=== PATIENT | male | born 1930 | race Caucasian/White ===

== ENCOUNTER 2018-04-02 06:48 | Day surgery (SDC) | payer MEDICARE ==
[2018-03-31 14:57] VITALS: BP 154/70
[2018-03-31 15:08] LABS: APPEARANCE,URINE Clear (CLEAR); BILIRUBIN,URINE Negative (NEGATIVE); COLOR,URINE Yellow (YELLOW); GLUCOSE, URINE (UA) Negative (NEGATIVE); KETONES,URINE Negative (NEGATIVE); LEUKOCYTE ESTERASE ,URINE Negative (NEGATIVE); NITRATE,URINE Negative (NEGATIVE); OCCULT BLOOD,URINE Negative (NEGATIVE); PH,URINE 6.5 (5.0-8.0); PROTEIN,URINE POS 2+ (NEGATIVE); UROBILINOGEN,URINE 0.2 mg/dL (0.2-1.0)
[2018-03-31 15:09] LABS: BASOPHILS % (AUTO) 1.2 % (0.0-5.0); EOSINOPHILS % (AUTO) 1.8 % (0.0-8.0); HEMATOCRIT 41.3 % (42-54); LYMPHOCYTES % (AUTO) 18.4 % (21.0-51.0); MEAN CORPUSCULAR HEMOGLOBIN 34.3 pg (27.0-33.0); MEAN CORPUSCULAR HGB CONC 32.8 g/dL (32.0-36.0); MEAN CORPUSCULAR VOLUME 104.8 fL (79-99); MONOCYTES % (AUTO) 7.3 % (3.0-13.0); NEUTROPHILS % (AUTO) 71.3 % (40.0-77.0); NUCLEATED RED BLOOD CELLS 0.2 % (0.0-0.19); PLATELET COUNT (AUTO) 108 K/uL (130-400); RED BLOOD CELL COUNT(AUTO) 3.95 MIL/uL (4.50-6.20); RED CELL DISTRIBUTION WIDTH 15.3 % (11.0-15.5); WHITE BLOOD COUNT (AUTO) 5.5 K/uL (4.8-10.8)
[2018-03-31 15:20] LABS: CREATININE 1.2 mg/dL (0.5-1.5); POTASSIUM 4.7 mmol/L (3.5-5.1)
[2018-03-31 15:21] LABS: INR 1.01 (0.85-1.15); PARTIAL THROMBOPLASTIN TIME 27.1 SEC (26.3-35.5); PROTHROMBIN TIME 10.6 SEC (9.6-11.6)
[2018-03-31 15:46] LABS: RBC,URINE 0-1 /HPF (0-1); WBC,URINE 0-1 /HPF (0-1)
[2018-03-31 15:47] LABS: BACTERIA,URINE Rare /HPF (None Seen); SQUAMOUS EPITHELIAL CELL,UR Rare /HPF (0-2)
[2018-04-02] VITALS (21 sets, daily range): BP systolic 146–167; BP diastolic 60–84
[~2018-04-02] VITALS: Ht 177.8 cm; Wt 106.4 kg
[~2018-04-02 06:48] MED LIST: AEC81 PO; ALLO300T2 PO; AMLO5TAB7 PO; ATOR10TA69 PO; CLOP75TA14 PO; FISH1CAP63 PO; INSU100I26 SQ; LISI1TAB11 PO; METF-444 PO; METOPROLOL ER PO; MULTIVITAMIN PO; SITA50TA PO; SODIUM CHLORIDE 0.9% 500ML 500 ML IV SCH; VITAMIN B12 PO; [UNRECOGNIZED DRUG - OTHER] PO
[2018-04-02] MEDS ORDERED: LIDOCAINE HCL-MPF 2% 5ML VIAL ONE (07:57)
[2018-04-02] MEDS ORDERED: NITROGLYCERIN 5 MG/ML 10 ML VIAL IV ONE (07:57)
[2018-04-02] MEDS ORDERED: IODIXANOL 320 MG/ML 100 ML VIAL ONE (07:57)
[2018-04-02] MEDS ORDERED: HEPARIN SODIUM 1000UNIT/ML 10ML VIAL ONE (07:57)
[2018-04-02] MEDS ORDERED: SODIUM CHLORIDE 0.9% 1000ML 1,000 ML IV ONE (08:46)
[2018-04-02] MEDS ORDERED: MIDAZOLAM HCL 1 MG/ML 2ML VIAL ONE (09:08)
[2018-04-02] MEDS ORDERED: FENTANYL CITRATE PF 50 MCG/1 ML 2ML VIAL ONE (09:09)
[2018-04-02] MEDS ORDERED: SODIUM CHLORIDE 0.9% 1000ML 1,000 ML IV SCH (10:02)
[2018-04-02] MEDS ORDERED: PROTAMINE SULFATE 10 MG/ML 25ML VIAL IV ONE (10:07)
[2018-04-02] MEDS ORDERED: NITROGLYCERIN 0.4 MG SL TAB SL PRN (10:15)
[2018-04-02] MEDS ORDERED: GLUCAGON 1MG KIT 1 MG ML IM PRN (10:15)
[2018-04-02] MEDS ORDERED: ONDANSETRON HCL 4 MG/2 ML VIAL IVP SCH (10:15)
[2018-04-02] MEDS ORDERED: METOPROLOL TARTRATE 1 MG/ML 5ML VIAL IV PRN (10:15)
[2018-04-02] MEDS ORDERED: DEXTROSE 50%-WATER 50 ML DISP.SYRIN IV PRN (10:15)
[2018-04-02] MEDS ORDERED: MORPHINE SULFATE 5 MG/ML VIAL IVP SCH (10:15)
[2018-04-02] MEDS ORDERED: INSULIN HUMULIN R 100 UNIT/ML 3ML SQ SCH (11:30)
[2018-04-02] MEDS ORDERED: ONDANSETRON HCL MDV 20ML 2 MG/ML VIAL ONE (11:34)
[2018-04-02] MEDS ORDERED: MORPHINE SULFATE 4 MG/1ML SYG ONE (11:35)
[2018-04-02] MEDS ORDERED: ATROPINE SULFATE 0.1 MG/ML 10 ML SYG IVP ONE (11:49)
== END 2018-04-02 15:10 | disposition home or self-care (01) ==
LOC: DAH 06:48
PROVIDERS: ATTEND Internal Medicine Cardiovascular Disease
DX: I70.213 Atherosclerosis of native arteries of extremities with intermittent claudication, bilateral legs (principal); I70.0 Atherosclerosis of aorta; Z68.32 Body mass index [BMI] 32.0-32.9, adult; Z79.899 Other long term (current) drug therapy; Z98.890 Other specified postprocedural states; E11.9 Type 2 diabetes mellitus without complications; E78.00 Pure hypercholesterolemia, unspecified; I25.10 Atherosclerotic heart disease of native coronary artery without angina pectoris; Z88.2 Allergy status to sulfonamides; Z79.84 Long term (current) use of oral hypoglycemic drugs; I10 Essential (primary) hypertension; Z86.73 Personal history of transient ischemic attack (TIA), and cerebral infarction without residual deficits; Z90.49 Acquired absence of other specified parts of digestive tract; I63.9 Cerebral infarction, unspecified; I48.91 Unspecified atrial fibrillation
CPT/HCPCS: 36246; 36415 ×2; 71045; 75625; 75716; 80048; 81001; 82948 ×2; 85025; 85347; 85610; 85730; 93005; C1769; C1893; C1894 ×2; J0461; J1644 ×3; J2250; J2270; J3010; J3490 ×2; J7030; Q9967; 36247; 99156; 99157; J2720

== ENCOUNTER 2018-04-12 14:05 | Inpatient (IN) | payer MEDICARE ==
[~2018-04-12] VITALS: Ht 177.8 cm; Wt 113.0 kg
[~2018-04-12 14:05] MED LIST changes: +CALCIUM CHLORIDE 100 MG/ML 10 ML SYG IVP ONE; +HEPARIN SODIUM 10000 UNIT/ML 1ML VIAL IJ ONE; +HEPARIN SODIUM 1000UNIT/ML 10ML VIAL IV ONE; +PHENYLEPHRINE HCL 10 MG/ML 1ML VIAL IV ONE; -SODIUM CHLORIDE 0.9% 500ML 500 ML IV SCH
[2018-04-12 15:54] VITALS: BP 146/70
[2018-04-12] MEDS ORDERED: HEPARIN 25000 UNITS/250 ML D5W 250 ML IV PRN (17:15)
[2018-04-12 17:41] LABS: CREATININE 1.3 mg/dL (0.5-1.5); POTASSIUM 4.9 mmol/L (3.5-5.1)
[2018-04-12] MEDS ORDERED: IOHEXOL 350 MG/ML 100ML INFUS..BTL IV ONE (18:06)
[2018-04-12] MEDS ORDERED: OMEG1CAP31 PO (18:07)
[2018-04-12 18:14] LABS: TROPONIN I 0.9 ng/mL (0.00-0.06)
[2018-04-12 19:00] VITALS: BP 136/75
[2018-04-12 23:00] VITALS: BP 143/76
[2018-04-13 03:00] VITALS: BP 153/90
[2018-04-13 04:44] LABS: TROPONIN I 0.59 ng/mL (0.00-0.06)
[2018-04-13 07:00] VITALS: BP 145/79
[2018-04-13 11:00] VITALS: BP 151/91
[2018-04-13 16:00] VITALS: BP 148/85
[2018-04-13] MEDS ORDERED: METFORMIN HCL 500 MG TABLET PO SCH (17:00)
[2018-04-13] MEDS ORDERED: MAG HYDROX/AL HYDROX/SIMETH ES 30 ML SUSP UDCUP PO PRN (17:15)
[2018-04-13] MEDS: BUMETANIDE 0.25 MG/ML 10 ML 40 ML IV SCH (18:35)
[2018-04-13] MEDS ORDERED: DICYCLOMINE HCL 10 MG/ML 2ML AMP IM PRN (19:45)
[2018-04-13 20:00] VITALS: BP 146/94
[2018-04-13] MEDS: ALLOPURINOL 300 MG TABLET PO SCH (20:52)
[2018-04-13] MEDS: CYANOCOBALAMIN (VITAMIN B-12) 1,000 MCG TABLET PO SCH (20:52)
[2018-04-13] MEDS: ASPIRIN 81 MG EC TAB PO SCH (20:52)
[2018-04-13] MEDS: AMLODIPINE BESYLATE 5 MG TAB PO SCH (20:52)
[2018-04-13] MEDS: FISH OIL 1000 MG/CAP PO SCH (20:52)
[2018-04-13] MEDS: METOPROLOL TARTRATE 50 MG TAB PO SCH (20:52)
[2018-04-13] MEDS: ATORVASTATIN CALCIUM 10 MG TABLET PO SCH (20:52)
[2018-04-13] MEDS: MULTIVITAMIN TABLET PO SCH (20:53)
[2018-04-13] MEDS: CLOPIDOGREL BISULFATE 75 MG TAB PO SCH (20:53)
[2018-04-13] MEDS ORDERED: DICYCLOMINE HCL 10 MG/ML 2ML AMP IM ONE (20:54)
[2018-04-13] MEDS ORDERED: DICYCLOMINE HCL 20 MG TAB PO PRN (22:45)
[2018-04-13 23:00] VITALS: BP 143/83
[2018-04-14] VITALS (7 sets, daily range): BP systolic 109–140; BP diastolic 58–84
[2018-04-14] MEDS: BUMETANIDE 0.25 MG/ML 10 ML 40 ML IV SCH (01:03)
[2018-04-14 04:12] LABS: HEMATOCRIT 38.7 % (42-54); MEAN CORPUSCULAR HEMOGLOBIN 35.4 pg (27.0-33.0); MEAN CORPUSCULAR HGB CONC 33.8 g/dL (32.0-36.0); MEAN CORPUSCULAR VOLUME 104.8 fL (79-99); PLATELET COUNT (AUTO) 126 K/uL (130-400); RED CELL DISTRIBUTION WIDTH 14.7 % (11.0-15.5)
[2018-04-14 04:31] LABS: HEMOGLOBIN A1C 6.5 % (4.0-6.0)
[2018-04-14 04:42] LABS: CREATININE 1.5 mg/dL (0.5-1.5); POTASSIUM 4.2 mmol/L (3.5-5.1)
[2018-04-14 04:51] LABS: TROPONIN I 25.58 ng/mL (0.00-0.06)
[2018-04-14 05:44] LABS: B-TYPE NATRIURETIC PEPTIDE 3270 pg/mL (0-100)
[2018-04-14] MEDS: INSULIN GLARGINE 100 UNITS/ML 10 ML VIAL SQ SCH (06:26)
[2018-04-14] MEDS: MULTIVITAMIN TABLET PO SCH ×2 (08:30→22:36)
[2018-04-14] MEDS: FISH OIL 1000 MG/CAP PO SCH ×2 (08:30→21:58)
[2018-04-14] MEDS: METOPROLOL TARTRATE 50 MG TAB PO SCH (08:30)
[2018-04-14] MEDS: LISINOPRIL 20 MG TABLET PO SCH (08:31)
[2018-04-14] MEDS: HYDROCHLOROTHIAZIDE 25 MG TABLET PO SCH (08:31)
[2018-04-14] MEDS: CYANOCOBALAMIN (VITAMIN B-12) 1,000 MCG TABLET PO SCH ×2 (08:31→21:58)
[2018-04-14] MEDS ORDERED: OMEGA ACID ETHYL ESTERS PO SCH (09:00)
[2018-04-14] MEDS: LINAGLIPTIN 5 MG TABLET PO SCH (09:00)
[2018-04-14] MEDS ORDERED: FUROSEMIDE 10 MG/ML 4ML VIAL IV SCH (16:15)
[2018-04-14] MEDS: CLOPIDOGREL BISULFATE 75 MG TAB PO SCH (21:58)
[2018-04-14] MEDS: AMLODIPINE BESYLATE 5 MG TAB PO SCH (21:58)
[2018-04-14] MEDS: ATORVASTATIN CALCIUM 10 MG TABLET PO SCH (21:58)
[2018-04-14] MEDS: ALLOPURINOL 300 MG TABLET PO SCH (21:58)
[2018-04-14] MEDS: ASPIRIN 81 MG EC TAB PO SCH (21:59)
[2018-04-14] MEDS: INSULIN HUMULIN R 100 UNIT/ML 3ML SQ SCH (22:37)
[2018-04-15 03:42] LABS: HEMATOCRIT 35.7 % (42-54); MEAN CORPUSCULAR HEMOGLOBIN 36.1 pg (27.0-33.0); MEAN CORPUSCULAR HGB CONC 34.3 g/dL (32.0-36.0); MEAN CORPUSCULAR VOLUME 105.1 fL (79-99); PLATELET COUNT (AUTO) 158 K/uL (130-400); RED BLOOD CELL COUNT(AUTO) 3.39 MIL/uL (4.50-6.20); RED CELL DISTRIBUTION WIDTH 15.1 % (11.0-15.5); WHITE BLOOD COUNT (AUTO) 10.1 K/uL (4.8-10.8)
[2018-04-15 03:53] LABS: B-TYPE NATRIURETIC PEPTIDE 1690 pg/mL (0-100)
[2018-04-15 04:06] LABS: CREATININE 1.8 mg/dL (0.5-1.5); POTASSIUM 4.6 mmol/L (3.5-5.1)
[2018-04-15 04:14] LABS: TROPONIN I 11.82 ng/mL (0.00-0.06)
[2018-04-15 04:35] VITALS: BP 114/69
[2018-04-15] MEDS: INSULIN HUMULIN R 100 UNIT/ML 3ML SQ SCH ×4 (06:36→22:12)
[2018-04-15] MEDS: INSULIN GLARGINE 100 UNITS/ML 10 ML VIAL SQ SCH (06:47)
[2018-04-15 08:02] VITALS: BP 141/52
[2018-04-15] MEDS: FISH OIL 1000 MG/CAP PO SCH ×2 (10:04→22:11)
[2018-04-15] MEDS: LINAGLIPTIN 5 MG TABLET PO SCH (10:04)
[2018-04-15] MEDS: CYANOCOBALAMIN (VITAMIN B-12) 1,000 MCG TABLET PO SCH ×2 (10:05→22:11)
[2018-04-15] MEDS: MULTIVITAMIN TABLET PO SCH ×2 (10:05→22:11)
[2018-04-15] MEDS: HYDROCHLOROTHIAZIDE 25 MG TABLET PO SCH (10:05)
[2018-04-15] MEDS: LISINOPRIL 20 MG TABLET PO SCH (10:05)
[2018-04-15] MEDS: IPRATROPIUM/ALBUTEROL SULFATE 3 ML SOLUTION IH SCH ×2 (11:32→23:49)
[2018-04-15 12:04] VITALS: BP 106/61
[2018-04-15 16:00] VITALS: BP 115/66
[2018-04-15 19:53] VITALS: BP 137/69
[2018-04-15] MEDS: AMLODIPINE BESYLATE 5 MG TAB PO SCH (22:11)
[2018-04-15] MEDS: ALLOPURINOL 300 MG TABLET PO SCH (22:11)
[2018-04-15] MEDS: ASPIRIN 81 MG EC TAB PO SCH (22:11)
[2018-04-15] MEDS: ATORVASTATIN CALCIUM 10 MG TABLET PO SCH (22:11)
[2018-04-15] MEDS: CLOPIDOGREL BISULFATE 75 MG TAB PO SCH (22:11)
[2018-04-16] VITALS (13 sets, daily range): BP systolic 110–146; BP diastolic 57–98
[2018-04-16 04:24] LABS: BASOPHILS % (AUTO) 0.8 % (0.0-5.0); HEMATOCRIT 34.6 % (42-54); LYMPHOCYTES % (AUTO) 9.3 % (21.0-51.0); MEAN CORPUSCULAR HEMOGLOBIN 35.5 pg (27.0-33.0); MEAN CORPUSCULAR HGB CONC 34.1 g/dL (32.0-36.0); MEAN CORPUSCULAR VOLUME 104.3 fL (79-99); MONOCYTES % (AUTO) 5.5 % (3.0-13.0); NEUTROPHILS % (AUTO) 83.4 % (40.0-77.0); PLATELET COUNT (AUTO) 138 K/uL (130-400); RED BLOOD CELL COUNT(AUTO) 3.32 MIL/uL (4.50-6.20); RED CELL DISTRIBUTION WIDTH 14.8 % (11.0-15.5); WHITE BLOOD COUNT (AUTO) 8.5 K/uL (4.8-10.8)
[2018-04-16 04:44] LABS: ALBUMIN 2.6 g/dL (3.5-5.0); BILIRUBIN,TOTAL 0.4 mg/dL (0.2-1.0); CREATININE 1.7 mg/dL (0.5-1.5); POTASSIUM 4.4 mmol/L (3.5-5.1); TOTAL PROTEIN, SERUM 6.6 g/dL (6.0-8.3)
[2018-04-16] MEDS: IPRATROPIUM/ALBUTEROL SULFATE 3 ML SOLUTION IH SCH ×4 (05:53→23:55)
[2018-04-16] MEDS: INSULIN HUMULIN R 100 UNIT/ML 3ML SQ SCH ×4 (06:59→21:00)
[2018-04-16] MEDS: INSULIN GLARGINE 100 UNITS/ML 10 ML VIAL SQ SCH (07:30)
[2018-04-16] MEDS ORDERED: SODIUM CHLORIDE 0.9% 1000ML 1,000 ML IV SCH ×2 (08:00→19:15)
[2018-04-16] MEDS: FISH OIL 1000 MG/CAP PO SCH ×2 (09:34→21:00)
[2018-04-16] MEDS: LINAGLIPTIN 5 MG TABLET PO SCH (09:35)
[2018-04-16] MEDS: CYANOCOBALAMIN (VITAMIN B-12) 1,000 MCG TABLET PO SCH ×2 (09:35→22:48)
[2018-04-16] MEDS: MULTIVITAMIN TABLET PO SCH ×2 (09:35→22:52)
[2018-04-16] MEDS: HYDROCHLOROTHIAZIDE 25 MG TABLET PO SCH (09:35)
[2018-04-16] MEDS: LISINOPRIL 20 MG TABLET PO SCH (09:36)
[2018-04-16 10:44] LABS: INR 1.02 (0.85-1.15); PARTIAL THROMBOPLASTIN TIME 26.5 SEC (26.3-35.5); PROTHROMBIN TIME 10.5 SEC (9.6-11.6)
[2018-04-16] MEDS ORDERED: LORAZEPAM 2 MG/ML 1 ML VIAL IVP PRN (13:00)
[2018-04-16] MEDS: INSULIN LISPRO 100 UNIT/ML 3ML SQ SCH (16:09)
[2018-04-16] MEDS ORDERED: IOHEXOL-350 50ML VIAL IV ONE (18:22)
[2018-04-16] MEDS ORDERED: NITROGLYCERIN 5 MG/ML 10 ML VIAL IV ONE (18:22)
[2018-04-16] MEDS ORDERED: HEPARIN SODIUM 1000UNIT/ML 10ML VIAL ONE (18:22)
[2018-04-16] MEDS ORDERED: LIDOCAINE HCL-MPF 2% 5ML VIAL ONE (18:22)
[2018-04-16] MEDS ORDERED: IOHEXOL 350 MG/ML 100ML INFUS..BTL IV ONE (18:22)
[2018-04-16] MEDS ORDERED: SODIUM BICARB 50MEQ 50ML VIAL ONE (18:22)
[2018-04-16] MEDS: ASPIRIN 81 MG EC TAB PO SCH (21:00)
[2018-04-16] MEDS: CLOPIDOGREL BISULFATE 75 MG TAB PO SCH (21:00)
[2018-04-16 21:33] LABS: CHOLESTEROL 56 mg/dL (<200); HDL CHOLESTEROL 22 mg/dL (29-71); LDL DIRECT 30 mg/dL (0-99); TRIGLYCERIDES 64 mg/dL (30-200)
[2018-04-16] MEDS: ATORVASTATIN CALCIUM 10 MG TABLET PO SCH (22:48)
[2018-04-16] MEDS: ALLOPURINOL 300 MG TABLET PO SCH (22:48)
[2018-04-16] MEDS: AMLODIPINE BESYLATE 5 MG TAB PO SCH (22:49)
[2018-04-17] VITALS (16 sets, daily range): BP systolic 90–144; BP diastolic 42–75
[2018-04-17 04:01] LABS: HEMATOCRIT 35.4 % (42-54); MEAN CORPUSCULAR HEMOGLOBIN 35.8 pg (27.0-33.0); MEAN CORPUSCULAR HGB CONC 34.3 g/dL (32.0-36.0); MEAN CORPUSCULAR VOLUME 104.5 fL (79-99); PLATELET COUNT (AUTO) 159 K/uL (130-400); RED BLOOD CELL COUNT(AUTO) 3.39 MIL/uL (4.50-6.20); RED CELL DISTRIBUTION WIDTH 14.8 % (11.0-15.5); WHITE BLOOD COUNT (AUTO) 7.4 K/uL (4.8-10.8)
[2018-04-17 04:43] LABS: POTASSIUM 3.7 mmol/L (3.5-5.1)
[2018-04-17 04:44] LABS: CREATININE 1.3 mg/dL (0.5-1.5)
[2018-04-17] MEDS: IPRATROPIUM/ALBUTEROL SULFATE 3 ML SOLUTION IH SCH ×4 (06:17→23:22)
[2018-04-17] MEDS: INSULIN GLARGINE 100 UNITS/ML 10 ML VIAL SQ SCH (06:28)
[2018-04-17] MEDS: INSULIN LISPRO 100 UNIT/ML 3ML SQ SCH ×2 (06:28→11:30)
[2018-04-17] MEDS: INSULIN HUMULIN R 100 UNIT/ML 3ML SQ SCH ×4 (06:35→20:37)
[2018-04-17] MEDS ORDERED: SODIUM CHLORIDE 0.9% 1000ML 1,000 ML IV ONE (10:14)
[2018-04-17] MEDS ORDERED: NITROGLYCERIN 50 MG/D5% WATER 1 BOT ONE (10:22)
[2018-04-17] MEDS ORDERED: PROPOFOL 10 MG/ML 20ML VIAL IV ONE (10:24)
[2018-04-17] MEDS ORDERED: EPINEPHRINE 1 MG/ML AMPULE ONE (10:24)
[2018-04-17] MEDS ORDERED: LIDOCAINE PF 2% 5ML ABBOJECT ONE (10:24)
[2018-04-17] MEDS ORDERED: SODIUM BICARB 50MEQ 50ML VIAL ONE ×2 (10:24→14:22)
[2018-04-17] MEDS ORDERED: HEPARIN SODIUM 1000UNIT/ML 10ML VIAL ONE (10:24)
[2018-04-17] MEDS ORDERED: PROTAMINE SULFATE 10 MG/ML 25ML VIAL IV ONE (10:24)
[2018-04-17] MEDS ORDERED: NOREPINEPHRINE BITARTRATE 1 MG/1 ML ML IV ONE (10:24)
[2018-04-17] MEDS ORDERED: AMINOCAPROIC ACID 250 MG/ML 20 ML VIAL IV ONE (10:24)
[2018-04-17] MEDS ORDERED: ESMOLOL HCL 10 MG/ML 10 ML VIAL ONE (10:24)
[2018-04-17] MEDS ORDERED: FENTANYL CITRATE PF 50 MCG/1 ML 20ML VIAL IJ ONE (10:25)
[2018-04-17] MEDS ORDERED: MIDAZOLAM HCL 1 MG/ML 5ML VIAL ONE (10:25)
[2018-04-17] MEDS ORDERED: CEFUROXIME SODIUM 1.5 GM VIAL IVP PRN (11:00)
[2018-04-17] MEDS ORDERED: THROMBIN-JMI 5000 UNIT/VIAL TP ONE (11:15)
[2018-04-17] MEDS ORDERED: ROCURONIUM 10MG/1ML SYR 10 MG/ML ML ONE (11:27)
[2018-04-17] MEDS ORDERED: PAPAVERINE HCL 30 MG/ML 2ML VIAL ONE (11:50)
[2018-04-17] MEDS ORDERED: OCTYL 2-CYANOACRYLATE 1 EACH TP ONE ×2 (11:50→15:00)
[2018-04-17] MEDS ORDERED: BACITRACIN 50,000 UNIT VIAL ONE (11:51)
[2018-04-17 12:07] LABS: ABG BASE EXCESS 1.4 mmol/L (-2.0-3.0); ABG OXYGEN SATURATION 98.9 % (95.0-99.0); ABG PCO2 36 mmHg (35-48)
[2018-04-17] MEDS ORDERED: EPHEDRINE SULFATE 50 MG/ML AMPULE ONE ×2 (13:00→14:33)
[2018-04-17] MEDS ORDERED: SODIUM CHLORIDE 0.9% 500ML 500 ML IV SCH (13:01)
[2018-04-17 13:11] LABS: ABG HCO3 22.3 mmol/L (21.0-28.0); ABG OXYGEN SATURATION 96.9 % (95.0-99.0); ABG PCO2 41 mmHg (35-48)
[2018-04-17] MEDS ORDERED: ALBUMIN (HUMAN) 5% 250 ML IV PRN (13:15)
[2018-04-17] MEDS ORDERED: SODIUM CHLORIDE 0.9% 1000ML 1,000 ML IV SCH (13:15)
[2018-04-17] MEDS ORDERED: INSULIN REGULAR, HUMAN 3ML 100 UNIT in SODIUM CHLORIDE 0.9% 99 ML IV SCH ×2 (13:15)
[2018-04-17] MEDS ORDERED: SODIUM CHLORIDE 0.9% 250 ML IV PRN (13:15)
[2018-04-17] MEDS ORDERED: GLUCAGON 1MG KIT 1 MG ML IM PRN (13:15)
[2018-04-17] MEDS ORDERED: EPINEPHRINE 8 MG in SODIUM CHLORIDE 0.9% 250 ML IV PRN (13:15)
[2018-04-17] MEDS ORDERED: NITROGLYCERIN 50 MG/D5% WATER 250 BOT IV SCH (13:15)
[2018-04-17] MEDS ORDERED: NOREPINEPHRINE 4MG/NS 250ML 250 ML IV PRN (13:15)
[2018-04-17] MEDS ORDERED: MORPHINE SULFATE 2 MG/ML 1ML SYG IV PRN (13:15)
[2018-04-17] MEDS ORDERED: SODIUM CHLORIDE 0.9% 10 ML VIAL IVP PRN (13:15)
[2018-04-17] MEDS ORDERED: ACETAMINOPHEN 325 MG TAB PO PRN (13:15)
[2018-04-17] MEDS ORDERED: AMINOCAPROIC ACID 15,000 MG in SODIUM CHLORIDE 0.9% 250 ML IV SCH (13:15)
[2018-04-17] MEDS ORDERED: POTASSIUM PHOS 15 mMOL+NS250ML 250 ML IV PRN (13:15)
[2018-04-17] MEDS ORDERED: MORPHINE SULFATE 4 MG/1ML SYG IV PRN (13:15)
[2018-04-17] MEDS ORDERED: DEXTROSE 50%-WATER 50 ML DISP.SYRIN IV PRN (13:15)
[2018-04-17] MEDS ORDERED: ONDANSETRON HCL 4 MG/2 ML VIAL IV PRN (13:15)
[2018-04-17] MEDS ORDERED: PROPOFOL 1000 MG/100 ML 100 ML IV PRN (13:15)
[2018-04-17] MEDS ORDERED: ACETAMINOPHEN 650 MG SUPPOSITORY RC PRN (13:15)
[2018-04-17] MEDS ORDERED: CALCIUM GLUCONATE 1 GM in SODIUM CHLORIDE 0.9% 50 ML IV PRN (13:15)
[2018-04-17] MEDS ORDERED: SODIUM BICARB 50MEQ 50ML VIAL IV PRN (13:15)
[2018-04-17 14:34] LABS: ABG HCO3 33.3 mmol/L (21.0-28.0); ABG OXYGEN SATURATION 98.7 % (95.0-99.0); ABG PCO2 51 mmHg (35-48)
[2018-04-17] MEDS ORDERED: POTASSIUM CHLORIDE 20MEQ/100ML 200 ML IV ONE (14:48)
[2018-04-17 15:48] LABS: ABG BASE EXCESS -2.6 mmol/L (-2.0-3.0); ABG HCO3 23.5 mmol/L (21.0-28.0); ABG OXYGEN SATURATION 91.3 % (95.0-99.0); ABG PCO2 46 mmHg (35-48)
[2018-04-17 15:56] LABS: HEMATOCRIT 33.3 % (42-54); MEAN CORPUSCULAR HEMOGLOBIN 35.4 pg (27.0-33.0); MEAN CORPUSCULAR HGB CONC 33.4 g/dL (32.0-36.0); MEAN CORPUSCULAR VOLUME 106.1 fL (79-99); PLATELET COUNT (AUTO) 217 K/uL (130-400); RED BLOOD CELL COUNT(AUTO) 3.14 MIL/uL (4.50-6.20); RED CELL DISTRIBUTION WIDTH 14.9 % (11.0-15.5); WHITE BLOOD COUNT (AUTO) 22.2 K/uL (4.8-10.8)
[2018-04-17 16:09] LABS: CREATININE 1.5 mg/dL (0.5-1.5); MAGNESIUM 1.7 mg/dL (1.80-2.40); PHOSPHORUS 4.4 mg/dL (2.5-4.9)
[2018-04-17] MEDS: POTASSIUM CHLORIDE 20MEQ/100ML 100 ML IV PRN ×4 (16:09→21:55)
[2018-04-17 16:13] LABS: POTASSIUM 2.9 mmol/L (3.5-5.1)
[2018-04-17] MEDS: MAGNESIUM 2GM PREMIX 50ML 50 ML IV PRN (17:21)
[2018-04-17 17:36] LABS: ABG BASE EXCESS -3.5 mmol/L (-2.0-3.0); ABG HCO3 21.9 mmol/L (21.0-28.0); ABG OXYGEN SATURATION 94.3 % (95.0-99.0); ABG PCO2 41 mmHg (35-48)
[2018-04-17 19:08] LABS: ABG BASE EXCESS -2.5 mmol/L (-2.0-3.0); ABG HCO3 22.1 mmol/L (21.0-28.0); ABG PCO2 37 mmHg (35-48)
[2018-04-17] MEDS ORDERED: PHARMACY COMMUNICATION MISC SCH (19:15)
[2018-04-17] MEDS ORDERED: NOREPINEPHRINE BITARTRATE 8 MG in SODIUM CHLORIDE 0.9% 250 ML IV PRN (19:22)
[2018-04-17] MEDS: ASPIRIN 81 MG EC TAB PO SCH (20:31)
[2018-04-17] MEDS: ATORVASTATIN CALCIUM 10 MG TABLET PO SCH (20:32)
[2018-04-17 21:41] LABS: MAGNESIUM 2.1 mg/dL (1.80-2.40); POTASSIUM 3.9 mmol/L (3.5-5.1)
[2018-04-17] MEDS: CEFUROXIME SODIUM 1.5 GM VIAL IVP SCH (21:55)
[2018-04-17 22:10] LABS: ABG BASE EXCESS -0.1 mmol/L (-2.0-3.0); ABG HCO3 22.7 mmol/L (21.0-28.0); ABG OXYGEN SATURATION 92.2 % (95.0-99.0); ABG PCO2 31 mmHg (35-48)
[2018-04-17] MEDS ORDERED: FUROSEMIDE 10 MG/ML 4ML VIAL IV ONE (22:56)
[2018-04-18] VITALS (24 sets, daily range): BP systolic 83–189; BP diastolic 41–93
[2018-04-18] MEDS: ACETAMINOPHEN 325 MG TAB PO PRN
[2018-04-18 01:03] LABS: ABG BASE EXCESS 2.9 mmol/L (-2.0-3.0); ABG HCO3 24.7 mmol/L (21.0-28.0); ABG OXYGEN SATURATION 95.8 % (95.0-99.0); ABG PCO2 30 mmHg (35-48)
[2018-04-18 02:11] LABS: ABG BASE EXCESS 4.6 mmol/L (-2.0-3.0); ABG HCO3 26.6 mmol/L (21.0-28.0); ABG OXYGEN SATURATION 96.7 % (95.0-99.0); ABG PCO2 32 mmHg (35-48)
[2018-04-18] MEDS: INSULIN HUMULIN R 100 UNIT/ML 3ML SQ SCH ×4 (02:23→21:00)
[2018-04-18 03:21] LABS: HEMATOCRIT 32.2 % (42-54); MEAN CORPUSCULAR HEMOGLOBIN 35.3 pg (27.0-33.0); MEAN CORPUSCULAR HGB CONC 33.5 g/dL (32.0-36.0); MEAN CORPUSCULAR VOLUME 105.4 fL (79-99); NUCLEATED RED BLOOD CELLS 0.1 % (0.0-0.19); PLATELET COUNT (AUTO) 221 K/uL (130-400); RED BLOOD CELL COUNT(AUTO) 3.06 MIL/uL (4.50-6.20); RED CELL DISTRIBUTION WIDTH 15.1 % (11.0-15.5); WHITE BLOOD COUNT (AUTO) 14.4 K/uL (4.8-10.8)
[2018-04-18 03:32] LABS: CREATININE 1.6 mg/dL (0.5-1.5); POTASSIUM 4.2 mmol/L (3.5-5.1)
[2018-04-18 03:36] LABS: MAGNESIUM 1.9 mg/dL (1.80-2.40); PHOSPHORUS 1.8 mg/dL (2.5-4.9)
[2018-04-18 03:43] LABS: INR 1.12 (0.85-1.15); PARTIAL THROMBOPLASTIN TIME 25.1 SEC (26.3-35.5); PROTHROMBIN TIME 11.7 SEC (9.6-11.6)
[2018-04-18] MEDS: MAGNESIUM 2GM PREMIX 50ML 50 ML IV PRN (04:39)
[2018-04-18 06:24] LABS: ABG BASE EXCESS 1.4 mmol/L (-2.0-3.0); ABG HCO3 24.6 mmol/L (21.0-28.0); ABG OXYGEN SATURATION 98.6 % (95.0-99.0); ABG PCO2 35 mmHg (35-48)
[2018-04-18] MEDS: IPRATROPIUM/ALBUTEROL SULFATE 3 ML SOLUTION IH SCH ×3 (06:28→18:00)
[2018-04-18] MEDS ORDERED: AMIODARONE HCL 150 MG in DEXTROSE 5%-WATER 100 ML IV SCH (08:30)
[2018-04-18] MEDS: CEFUROXIME SODIUM 1.5 GM VIAL IVP SCH ×2 (08:45→21:47)
[2018-04-18] MEDS: FAMOTIDINE/PF 20 MG/2 ML VIAL IV SCH (08:45)
[2018-04-18] MEDS ORDERED: AMIODARONE HCL 900 MG in DEXTROSE 5%-WATER 500 ML IV SCH (08:57)
[2018-04-18] MEDS: CLOPIDOGREL BISULFATE 75 MG TAB PO SCH (09:10)
[2018-04-18] MEDS: FUROSEMIDE 10 MG/ML 2ML VIAL IV SCH ×2 (09:11→21:46)
[2018-04-18] MEDS: TRAMADOL HCL 50 MG TABLET PO PRN (09:13)
[2018-04-18 10:51] LABS: ABG HCO3 26.3 mmol/L (21.0-28.0); ABG OXYGEN SATURATION 95.8 % (95.0-99.0); ABG PCO2 36 mmHg (35-48)
[2018-04-18] MEDS ORDERED: ALBUMIN (HUMAN) 5% 250 ML IV ONE (16:52)
[2018-04-18 17:03] LABS: ABG BASE EXCESS 4.2 mmol/L (-2.0-3.0); ABG HCO3 28.1 mmol/L (21.0-28.0); ABG OXYGEN SATURATION 96.2 % (95.0-99.0); ABG PCO2 39 mmHg (35-48)
[2018-04-18] MEDS ORDERED: ALBUMIN (HUMAN) 5% 250 ML IV SCH (17:15)
[2018-04-18] MEDS: ACETYLCYSTEINE 10% 100MG/ML 4ML VIAL IH SCH ×2 (18:12→23:39)
[2018-04-18] MEDS: IPRATROPIUM 0.5 MG/2.5 ML INH IH SCH ×2 (18:12→23:39)
[2018-04-18] MEDS: ALLOPURINOL 300 MG TABLET PO SCH (21:00)
[2018-04-18] MEDS: ASPIRIN 81 MG EC TAB PO SCH (21:00)
[2018-04-18] MEDS: ATORVASTATIN CALCIUM 10 MG TABLET PO SCH (21:00)
[2018-04-18] MEDS ORDERED: DiphenhydrAMINE HCL 50 MG/ML VIAL ONE (21:33)
[2018-04-18] MEDS: BUDESONIDE 0.5 MG/2 ML INH IH SCH (23:39)
[2018-04-19] VITALS (22 sets, daily range): BP systolic 95–142; BP diastolic 42–82
[2018-04-19 04:48] LABS: BASOPHILS % (AUTO) 0.4 % (0.0-5.0); EOSINOPHILS % (AUTO) 0.3 % (0.0-8.0); HEMATOCRIT 28.4 % (42-54); LYMPHOCYTES % (AUTO) 7.3 % (21.0-51.0); MEAN CORPUSCULAR HGB CONC 32.8 g/dL (32.0-36.0); MEAN CORPUSCULAR VOLUME 106.5 fL (79-99); MONOCYTES % (AUTO) 4.2 % (3.0-13.0); NEUTROPHILS % (AUTO) 87.8 % (40.0-77.0); PLATELET COUNT (AUTO) 139 K/uL (130-400); RED BLOOD CELL COUNT(AUTO) 2.67 MIL/uL (4.50-6.20); RED CELL DISTRIBUTION WIDTH 15.6 % (11.0-15.5); WHITE BLOOD COUNT (AUTO) 11.4 K/uL (4.8-10.8)
[2018-04-19 05:05] LABS: CREATININE 2.1 mg/dL (0.5-1.5); MAGNESIUM 2.3 mg/dL (1.80-2.40); PHOSPHORUS 4.8 mg/dL (2.5-4.9); POTASSIUM 5.3 mmol/L (3.5-5.1)
[2018-04-19] MEDS: IPRATROPIUM/ALBUTEROL SULFATE 3 ML SOLUTION IH SCH ×4 (06:00→18:00)
[2018-04-19] MEDS: ACETYLCYSTEINE 10% 100MG/ML 4ML VIAL IH SCH ×4 (06:47→23:53)
[2018-04-19] MEDS: IPRATROPIUM 0.5 MG/2.5 ML INH IH SCH ×4 (06:47→23:53)
[2018-04-19] MEDS: BUDESONIDE 0.5 MG/2 ML INH IH SCH ×2 (06:48→18:04)
[2018-04-19 07:27] LABS: ABG BASE EXCESS 1.7 mmol/L (-2.0-3.0); ABG HCO3 25.2 mmol/L (21.0-28.0); ABG OXYGEN SATURATION 94.7 % (95.0-99.0); ABG PCO2 36 mmHg (35-48)
[2018-04-19] MEDS: INSULIN HUMULIN R 100 UNIT/ML 3ML SQ SCH ×4 (07:30→23:22)
[2018-04-19] MEDS: CLOPIDOGREL BISULFATE 75 MG TAB PO SCH (08:30)
[2018-04-19] MEDS: FAMOTIDINE/PF 20 MG/2 ML VIAL IV SCH (08:30)
[2018-04-19] MEDS: ASPIRIN 81 MG EC TAB PO SCH (08:31)
[2018-04-19] MEDS: ATORVASTATIN CALCIUM 10 MG TABLET PO SCH (08:31)
[2018-04-19] MEDS ORDERED: FUROSEMIDE 20 MG TABLET PO SCH (09:00)
[2018-04-19] MEDS ORDERED: AMIODARONE HCL 200 MG TABLET PO SCH (10:15)
[2018-04-19] MEDS: TRAMADOL HCL 50 MG TABLET PO PRN (15:27)
[2018-04-19] MEDS: DEXTROSE 5 %-0.45 % NACL 1,000 ML IV SCH (16:27)
[2018-04-19] MEDS: AMIODARONE HCL 200 MG TABLET PO SCH (20:40)
[2018-04-19] MEDS: METOPROLOL TARTRATE 25 MG TAB PO SCH (20:40)
[2018-04-19] MEDS: ZOSYN 3.375GM+NS 50ML 50 ML IV SCH (20:40)
[2018-04-19] MEDS: ALLOPURINOL 300 MG TABLET PO SCH (20:40)
[2018-04-19] MEDS: ENOXAPARIN SODIUM 30 MG/0.3 ML SQ SCH (20:41)
[2018-04-20] VITALS (17 sets, daily range): BP systolic 91–138; BP diastolic 39–69
[2018-04-20 03:33] LABS: HEMATOCRIT 28.5 % (42-54); MEAN CORPUSCULAR HEMOGLOBIN 36.4 pg (27.0-33.0); MEAN CORPUSCULAR HGB CONC 33.9 g/dL (32.0-36.0); MEAN CORPUSCULAR VOLUME 107.4 fL (79-99); NUCLEATED RED BLOOD CELLS 0.1 % (0.0-0.19); PLATELET COUNT (AUTO) 125 K/uL (130-400); RED BLOOD CELL COUNT(AUTO) 2.66 MIL/uL (4.50-6.20); RED CELL DISTRIBUTION WIDTH 15.5 % (11.0-15.5); WHITE BLOOD COUNT (AUTO) 9.5 K/uL (4.8-10.8)
[2018-04-20 03:43] LABS: CREATININE 2.5 mg/dL (0.5-1.5); POTASSIUM 5.5 mmol/L (3.5-5.1)
[2018-04-20] MEDS: IPRATROPIUM/ALBUTEROL SULFATE 3 ML SOLUTION IH SCH ×4 (06:00→18:00)
[2018-04-20] MEDS: INSULIN HUMULIN R 100 UNIT/ML 3ML SQ SCH ×2 (06:18→23:56)
[2018-04-20] MEDS: IPRATROPIUM 0.5 MG/2.5 ML INH IH SCH ×3 (07:14→17:59)
[2018-04-20] MEDS: BUDESONIDE 0.5 MG/2 ML INH IH SCH ×2 (07:14→17:59)
[2018-04-20] MEDS: ACETYLCYSTEINE 10% 100MG/ML 4ML VIAL IH SCH ×3 (07:14→17:59)
[2018-04-20] MEDS: DEXTROSE 5 %-0.45 % NACL 1,000 ML IV SCH ×2 (08:36→23:44)
[2018-04-20] MEDS: FAMOTIDINE/PF 20 MG/2 ML VIAL IV SCH (08:37)
[2018-04-20] MEDS: CLOPIDOGREL BISULFATE 75 MG TAB PO SCH (08:37)
[2018-04-20] MEDS: METOPROLOL TARTRATE 25 MG TAB PO SCH ×2 (08:37→20:54)
[2018-04-20] MEDS: AMIODARONE HCL 200 MG TABLET PO SCH ×2 (08:38→20:52)
[2018-04-20] MEDS: ENOXAPARIN SODIUM 30 MG/0.3 ML SQ SCH (08:38)
[2018-04-20] MEDS: ZOSYN 3.375GM+NS 50ML 50 ML IV SCH ×2 (08:38→21:03)
[2018-04-20] MEDS: TRAMADOL HCL 50 MG TABLET PO PRN ×2 (08:40→20:53)
[2018-04-20] MEDS ORDERED: SODIUM CHLORIDE 0.9% 100 ML IV ONE (08:47)
[2018-04-20 19:18] LABS: APPEARANCE,URINE Clear (CLEAR); BILIRUBIN,URINE Negative (NEGATIVE); COLOR,URINE Yellow (YELLOW); GLUCOSE, URINE (UA) Negative (NEGATIVE); KETONES,URINE Negative (NEGATIVE); LEUKOCYTE ESTERASE ,URINE Trace (NEGATIVE); NITRATE,URINE Negative (NEGATIVE); OCCULT BLOOD,URINE Moderate (NEGATIVE); PH,URINE 5.5 (5.0-8.0); PROTEIN,URINE POS 1+ (NEGATIVE)
[2018-04-20 19:20] LABS: SODIUM,URINE RANDOM 39 mmol/l (40-220)
[2018-04-20 20:24] LABS: BACTERIA,URINE Rare /HPF (None Seen); SQUAMOUS EPITHELIAL CELL,UR 0-2 /HPF (0-2)
[2018-04-20] MEDS: ALBUMIN (HUMAN) 25% 50 ML IV SCH (20:45)
[2018-04-20] MEDS: ATORVASTATIN CALCIUM 10 MG TABLET PO SCH (20:52)
[2018-04-20] MEDS: ALLOPURINOL 300 MG TABLET PO SCH (20:52)
[2018-04-20] MEDS: ASPIRIN 81 MG EC TAB PO SCH (20:52)
[2018-04-20] MEDS ORDERED: BUMETANIDE 0.25 MG/ML 4 ML VIAL IVP SCH (21:00)
[2018-04-21] VITALS (24 sets, daily range): BP systolic 96–130; BP diastolic 46–70
[2018-04-21] MEDS: ACETYLCYSTEINE 10% 100MG/ML 4ML VIAL IH SCH ×5 (00:01→23:46)
[2018-04-21] MEDS: IPRATROPIUM 0.5 MG/2.5 ML INH IH SCH ×5 (00:01→23:46)
[2018-04-21 04:20] LABS: HEMATOCRIT 26.9 % (42-54); MEAN CORPUSCULAR HEMOGLOBIN 35.4 pg (27.0-33.0); NUCLEATED RED BLOOD CELLS 0.6 % (0.0-0.19); PLATELET COUNT (AUTO) 126 K/uL (130-400); RED BLOOD CELL COUNT(AUTO) 2.51 MIL/uL (4.50-6.20); WHITE BLOOD COUNT (AUTO) 7.6 K/uL (4.8-10.8)
[2018-04-21 04:21] LABS: % IRON SATURATION 15.6 % (30-44)
[2018-04-21 04:23] LABS: B-TYPE NATRIURETIC PEPTIDE 1710 pg/mL (0-100)
[2018-04-21 04:27] LABS: BILIRUBIN,TOTAL 0.5 mg/dL (0.2-1.0); CREATININE 2.3 mg/dL (0.5-1.5); MAGNESIUM 2.4 mg/dL (1.80-2.40); PHOSPHORUS 4.7 mg/dL (2.5-4.9); POTASSIUM 4.7 mmol/L (3.5-5.1); TOTAL PROTEIN, SERUM 5.7 g/dL (6.0-8.3); URIC ACID 7.6 mg/dL (2.6-7.2)
[2018-04-21] MEDS: IPRATROPIUM/ALBUTEROL SULFATE 3 ML SOLUTION IH SCH ×3 (06:00→23:50)
[2018-04-21] MEDS: INSULIN HUMULIN R 100 UNIT/ML 3ML SQ SCH ×3 (06:01→20:30)
[2018-04-21] MEDS: BUDESONIDE 0.5 MG/2 ML INH IH SCH ×2 (07:35→18:23)
[2018-04-21] MEDS: ALBUMIN (HUMAN) 25% 50 ML IV SCH (08:14)
[2018-04-21] MEDS ORDERED: BUMETANIDE 0.25 MG/ML 4 ML VIAL IVP SCH ×2 (09:00)
[2018-04-21] MEDS: BUMETANIDE 0.25 MG/ML 4 ML VIAL IVP SCH ×2 (09:15→17:43)
[2018-04-21] MEDS: FAMOTIDINE/PF 20 MG/2 ML VIAL IV SCH (09:39)
[2018-04-21] MEDS: ZOSYN 3.375GM+NS 50ML 50 ML IV SCH ×2 (09:39→20:28)
[2018-04-21] MEDS: ENOXAPARIN SODIUM 30 MG/0.3 ML SQ SCH (11:25)
[2018-04-21] MEDS: AMIODARONE HCL 200 MG TABLET PO SCH ×2 (11:25→20:29)
[2018-04-21] MEDS: METOPROLOL TARTRATE 25 MG TAB PO SCH ×2 (11:25→20:29)
[2018-04-21] MEDS: CLOPIDOGREL BISULFATE 75 MG TAB PO SCH (11:26)
[2018-04-21] MEDS ORDERED: ALBUMIN (HUMAN) 25% 50 ML IV SCH (15:30)
[2018-04-21] MEDS: DEXTROSE 5 %-0.45 % NACL 1,000 ML IV SCH (18:15)
[2018-04-21] MEDS: ATORVASTATIN CALCIUM 10 MG TABLET PO SCH (20:29)
[2018-04-21] MEDS: ASPIRIN 81 MG EC TAB PO SCH (20:29)
[2018-04-21] MEDS: POLYETHYLENE GLYCOL 3350 17 GM POWD.PACK PO SCH (20:29)
[2018-04-21] MEDS: ALLOPURINOL 300 MG TABLET PO SCH (20:29)
[2018-04-22] VITALS (24 sets, daily range): BP systolic 93–149; BP diastolic 42–77
[2018-04-22 03:41] LABS: CREATININE 2.1 mg/dL (0.5-1.5); POTASSIUM 4.5 mmol/L (3.5-5.1)
[2018-04-22] MEDS: INSULIN HUMULIN R 100 UNIT/ML 3ML SQ SCH ×4 (06:16→22:25)
[2018-04-22] MEDS: IPRATROPIUM 0.5 MG/2.5 ML INH IH SCH ×3 (07:10→18:34)
[2018-04-22] MEDS: BUDESONIDE 0.5 MG/2 ML INH IH SCH ×2 (07:10→18:35)
[2018-04-22] MEDS: ACETYLCYSTEINE 10% 100MG/ML 4ML VIAL IH SCH ×3 (07:10→18:34)
[2018-04-22] MEDS ORDERED: COMPOUND IV MISC 1 EACH IVSOLN MISC PRN (07:15)
[2018-04-22] MEDS: DEXTROSE 5%-WATER 1,000 ML IV SCH ×2 (07:42→20:15)
[2018-04-22] MEDS ORDERED: SODIUM CHLORIDE 0.9% 100 ML IV ONE (12:31)
[2018-04-22] MEDS: FAMOTIDINE/PF 20 MG/2 ML VIAL IV SCH (12:32)
[2018-04-22] MEDS: CLOPIDOGREL BISULFATE 75 MG TAB PO SCH (12:32)
[2018-04-22] MEDS: ZOSYN 3.375GM+NS 50ML 50 ML IV SCH ×2 (12:32→21:00)
[2018-04-22] MEDS: METOPROLOL TARTRATE 25 MG TAB PO SCH ×2 (12:33→20:59)
[2018-04-22] MEDS: BUMETANIDE 0.25 MG/ML 4 ML VIAL IVP SCH ×2 (12:33→21:00)
[2018-04-22] MEDS: AMIODARONE HCL 200 MG TABLET PO SCH ×2 (12:33→21:00)
[2018-04-22] MEDS: IRON SUCROSE COMPLEX 100 MG in SODIUM CHLORIDE 0.9% 50 ML IV SCH (12:34)
[2018-04-22] MEDS: ENOXAPARIN SODIUM 30 MG/0.3 ML SQ SCH (12:34)
[2018-04-22] MEDS: ACETAMINOPHEN 325 MG TAB PO PRN (17:54)
[2018-04-22] MEDS ORDERED: ALLOPURINOL 300 MG TABLET ONE (20:52)
[2018-04-22] MEDS: ZOLPIDEM TARTRATE 5 MG TAB PO PRN (20:59)
[2018-04-22] MEDS: POLYETHYLENE GLYCOL 3350 17 GM POWD.PACK PO SCH (21:00)
[2018-04-22] MEDS: ALLOPURINOL 300 MG TABLET PO SCH (21:00)
[2018-04-22] MEDS: ASPIRIN 81 MG EC TAB PO SCH (21:01)
[2018-04-22] MEDS: ATORVASTATIN CALCIUM 10 MG TABLET PO SCH (21:01)
[2018-04-23] VITALS (9 sets, daily range): BP systolic 103–140; BP diastolic 54–71
[2018-04-23] MEDS: ACETYLCYSTEINE 10% 100MG/ML 4ML VIAL IH SCH ×2 (00:12→06:12)
[2018-04-23] MEDS: IPRATROPIUM 0.5 MG/2.5 ML INH IH SCH ×2 (00:13→06:12)
[2018-04-23 03:44] LABS: HEMATOCRIT 28.9 % (42-54); MEAN CORPUSCULAR HEMOGLOBIN 35.1 pg (27.0-33.0); MEAN CORPUSCULAR HGB CONC 32.9 g/dL (32.0-36.0); MEAN CORPUSCULAR VOLUME 106.8 fL (79-99); NUCLEATED RED BLOOD CELLS 1.2 % (0.0-0.19); PLATELET COUNT (AUTO) 133 K/uL (130-400); RED BLOOD CELL COUNT(AUTO) 2.71 MIL/uL (4.50-6.20); RED CELL DISTRIBUTION WIDTH 14.6 % (11.0-15.5)
[2018-04-23 03:57] LABS: ALBUMIN 2.1 g/dL (3.5-5.0); CREATININE 1.9 mg/dL (0.5-1.5); MAGNESIUM 2.1 mg/dL (1.80-2.40); PHOSPHORUS 3.8 mg/dL (2.5-4.9); POTASSIUM 4.1 mmol/L (3.5-5.1)
[2018-04-23 04:00] LABS: B-TYPE NATRIURETIC PEPTIDE 2270 pg/mL (0-100)
[2018-04-23] MEDS: INSULIN HUMULIN R 100 UNIT/ML 3ML SQ SCH ×4 (06:11→22:05)
[2018-04-23] MEDS: BUDESONIDE 0.5 MG/2 ML INH IH SCH ×2 (06:12→20:44)
[2018-04-23] MEDS ORDERED: SODIUM CHLORIDE 0.9% 100 ML IV ONE (08:45)
[2018-04-23] MEDS: TAMSULOSIN HCL 0.4 MG CAP.ER.24H PO SCH (09:00)
[2018-04-23] MEDS: IRON SUCROSE COMPLEX 100 MG in SODIUM CHLORIDE 0.9% 50 ML IV SCH (09:00)
[2018-04-23] MEDS: CLOPIDOGREL BISULFATE 75 MG TAB PO SCH (09:00)
[2018-04-23] MEDS: AMIODARONE HCL 200 MG TABLET PO SCH (09:00)
[2018-04-23] MEDS: ENOXAPARIN SODIUM 30 MG/0.3 ML SQ SCH (09:00)
[2018-04-23] MEDS: ZOSYN 3.375GM+NS 50ML 50 ML IV SCH ×2 (09:00→20:17)
[2018-04-23] MEDS: FAMOTIDINE/PF 20 MG/2 ML VIAL IV SCH (09:00)
[2018-04-23] MEDS: BUMETANIDE 0.25 MG/ML 4 ML VIAL IVP SCH ×2 (09:00→20:17)
[2018-04-23] MEDS: SODIUM CHLORIDE 3% FOR INHALATION 4 ML/AMP VIAL.NEB IH ONE ×2 (11:56→13:20)
[2018-04-23] MEDS ORDERED: SODIUM CHLORIDE FOR INHALATION 3 ML VIAL.NEB. IH SCH (12:00)
[2018-04-23] MEDS: [UNRECOGNIZED DRUG - OTHER] IH SCH ×2 (19:31→23:26)
[2018-04-23] MEDS: SODIUM CHLORIDE 3% IH SCH ×2 (19:31→23:26)
[2018-04-23] MEDS: ZOLPIDEM TARTRATE 5 MG TAB PO PRN (20:17)
[2018-04-23] MEDS: ASPIRIN 81 MG EC TAB PO SCH (20:17)
[2018-04-23] MEDS: ATORVASTATIN CALCIUM 10 MG TABLET PO SCH (20:17)
[2018-04-23] MEDS: POLYETHYLENE GLYCOL 3350 17 GM POWD.PACK PO SCH (20:17)
[2018-04-23] MEDS: ALLOPURINOL 300 MG TABLET PO SCH (21:00)
[2018-04-23] MEDS: DEXTROSE 5%-WATER 1,000 ML IV SCH (22:55)
[2018-04-24] VITALS (7 sets, daily range): BP systolic 115–141; BP diastolic 57–76
[2018-04-24] MEDS: SODIUM CHLORIDE 3% IH SCH ×3 (05:54→18:32)
[2018-04-24] MEDS: [UNRECOGNIZED DRUG - OTHER] IH SCH ×3 (05:54→18:32)
[2018-04-24] MEDS: BUDESONIDE 0.5 MG/2 ML INH IH SCH ×2 (06:01→18:47)
[2018-04-24] MEDS: INSULIN HUMULIN R 100 UNIT/ML 3ML SQ SCH ×4 (06:53→21:00)
[2018-04-24] MEDS: ACETAMINOPHEN 325 MG TAB PO PRN (08:18)
[2018-04-24] MEDS: FAMOTIDINE/PF 20 MG/2 ML VIAL IV SCH (09:37)
[2018-04-24] MEDS: TAMSULOSIN HCL 0.4 MG CAP.ER.24H PO SCH (09:37)
[2018-04-24] MEDS: CLOPIDOGREL BISULFATE 75 MG TAB PO SCH (09:38)
[2018-04-24] MEDS: BUMETANIDE 1 MG TAB PO SCH ×2 (09:38→20:19)
[2018-04-24] MEDS: AMIODARONE HCL 200 MG TABLET PO SCH (09:38)
[2018-04-24] MEDS: ZOSYN 3.375GM+NS 50ML 50 ML IV SCH (09:38)
[2018-04-24] MEDS: ENOXAPARIN SODIUM 30 MG/0.3 ML SQ SCH (09:38)
[2018-04-24] MEDS: DEXTROSE 5%-WATER 1,000 ML IV SCH ×2 (09:56→12:15)
[2018-04-24] MEDS: IRON SUCROSE COMPLEX 100 MG in SODIUM CHLORIDE 0.9% 50 ML IV SCH (09:57)
[2018-04-24 11:10] LABS: CREATININE 1.5 mg/dL (0.5-1.5); POTASSIUM 3.9 mmol/L (3.5-5.1)
[2018-04-24] MEDS: POLYETHYLENE GLYCOL 3350 17 GM POWD.PACK PO SCH (20:19)
[2018-04-24] MEDS: ATORVASTATIN CALCIUM 10 MG TABLET PO SCH (20:19)
[2018-04-24] MEDS: ASPIRIN 81 MG EC TAB PO SCH (20:19)
[2018-04-24] MEDS: ALLOPURINOL 300 MG TABLET PO SCH (21:00)
[2018-04-25] MEDS: SODIUM CHLORIDE 3% IH SCH ×4 (00:01→18:18)
[2018-04-25] MEDS: [UNRECOGNIZED DRUG - OTHER] IH SCH ×4 (00:01→18:18)
[2018-04-25 03:33] LABS: HEMATOCRIT 30.3 % (42-54); MEAN CORPUSCULAR HEMOGLOBIN 35.4 pg (27.0-33.0); MEAN CORPUSCULAR HGB CONC 33.2 g/dL (32.0-36.0); MEAN CORPUSCULAR VOLUME 106.6 fL (79-99); NUCLEATED RED BLOOD CELLS 0.2 % (0.0-0.19); PLATELET COUNT (AUTO) 130 K/uL (130-400); RED BLOOD CELL COUNT(AUTO) 2.84 MIL/uL (4.50-6.20); RED CELL DISTRIBUTION WIDTH 14.9 % (11.0-15.5); WHITE BLOOD COUNT (AUTO) 9.2 K/uL (4.8-10.8)
[2018-04-25 03:44] LABS: CREATININE 1.4 mg/dL (0.5-1.5); POTASSIUM 3.7 mmol/L (3.5-5.1)
[2018-04-25 03:50] VITALS: BP 137/59
[2018-04-25] MEDS: BUDESONIDE 0.5 MG/2 ML INH IH SCH ×2 (06:42→18:18)
[2018-04-25] MEDS: INSULIN HUMULIN R 100 UNIT/ML 3ML SQ SCH ×3 (07:08→16:46)
[2018-04-25 07:31] VITALS: BP 165/66
[2018-04-25] MEDS: BUMETANIDE 1 MG TAB PO SCH (09:04)
[2018-04-25] MEDS: FAMOTIDINE/PF 20 MG/2 ML VIAL IV SCH (09:04)
[2018-04-25] MEDS: TAMSULOSIN HCL 0.4 MG CAP.ER.24H PO SCH (09:05)
[2018-04-25] MEDS: ENOXAPARIN SODIUM 30 MG/0.3 ML SQ SCH (09:09)
[2018-04-25 11:06] VITALS: BP 143/57
[2018-04-25] MEDS: ACETAMINOPHEN 325 MG TAB PO PRN (15:27)
[2018-04-25 16:23] VITALS: BP 133/79
[2018-04-25] MEDS ORDERED: RIVAROXABAN 15 MG TABLET PO SCH (21:00)
[2018-04-26] MEDS ORDERED: LOSARTAN 50 MG TABLET PO SCH (09:00)
== END 2018-04-25 18:45 | DRG 233 ==
LOC: OBSVTOIN 14:05 → 2DH 14:05 → 2CV 04-17 10:57 → 2BH 04-18 14:28 → 2CH 04-19 11:46 → 2DH 04-23 17:10
PROVIDERS: ADMIT Internal Medicine; ATTEND Internal Medicine
PROC: 4A023N7 Measurement of Cardiac Sampling and Pressure, Left Heart, Percutaneous Approach (ICD-10-PCS; principal; 2018-04-16)
PROC: B2111ZZ Fluoroscopy of Multiple Coronary Arteries using Low Osmolar Contrast (ICD-10-PCS; 2018-04-16)
PROC: 021109W Bypass Coronary Artery, Two Arteries from Aorta with Autologous Venous Tissue, Open Approach (ICD-10-PCS; 2018-04-17)
PROC: 06BQ4ZZ Excision of Left Saphenous Vein, Percutaneous Endoscopic Approach (ICD-10-PCS; 2018-04-17)
PROC: 30233R1 Transfusion of Nonautologous Platelets into Peripheral Vein, Percutaneous Approach (ICD-10-PCS; 2018-04-17)
PROC: 5A09357 Assistance with Respiratory Ventilation, Less than 24 Consecutive Hours, Continuous Positive Airway Pressure (ICD-10-PCS; 2018-04-17)
PROC: 5A09357 Assistance with Respiratory Ventilation, Less than 24 Consecutive Hours, Continuous Positive Airway Pressure (ICD-10-PCS; 2018-04-17)
PROC: 02100Z9 Bypass Coronary Artery, One Artery from Left Internal Mammary, Open Approach (ICD-10-PCS; 2018-04-17 11:00)
PROC: 0DH67UZ Insertion of Feeding Device into Stomach, Via Natural or Artificial Opening (ICD-10-PCS; 2018-04-19)
PROC: 5A09357 Assistance with Respiratory Ventilation, Less than 24 Consecutive Hours, Continuous Positive Airway Pressure (ICD-10-PCS; 2018-04-21)
PROC: 5A09357 Assistance with Respiratory Ventilation, Less than 24 Consecutive Hours, Continuous Positive Airway Pressure (ICD-10-PCS; 2018-04-22)
PROC: 5A09357 Assistance with Respiratory Ventilation, Less than 24 Consecutive Hours, Continuous Positive Airway Pressure (ICD-10-PCS; 2018-04-24)
DX: I21.4 Non-ST elevation (NSTEMI) myocardial infarction (principal); G92 Toxic encephalopathy; J96.01 Acute respiratory failure with hypoxia; I50.21 Acute systolic (congestive) heart failure; N17.9 Acute kidney failure, unspecified; I13.0 Hypertensive heart and chronic kidney disease with heart failure and stage 1 through stage 4 chronic kidney disease, or unspecified chronic kidney disease; E46 Unspecified protein-calorie malnutrition; Z99.11 Dependence on respirator [ventilator] status; E87.0 Hyperosmolality and hypernatremia; I48.92 Unspecified atrial flutter; E11.51 Type 2 diabetes mellitus with diabetic peripheral angiopathy without gangrene; N18.9 Chronic kidney disease, unspecified; E11.22 Type 2 diabetes mellitus with diabetic chronic kidney disease; I44.1 Atrioventricular block, second degree; H57.02 Anisocoria; R13.11 Dysphagia, oral phase; I25.110 Atherosclerotic heart disease of native coronary artery with unstable angina pectoris; I25.5 Ischemic cardiomyopathy; M10.9 Gout, unspecified; D50.0 Iron deficiency anemia secondary to blood loss (chronic); D69.6 Thrombocytopenia, unspecified; D72.829 Elevated white blood cell count, unspecified; E11.65 Type 2 diabetes mellitus with hyperglycemia; E78.2 Mixed hyperlipidemia; F41.9 Anxiety disorder, unspecified; E87.5 Hyperkalemia; I25.2 Old myocardial infarction; I48.0 Paroxysmal atrial fibrillation; I49.5 Sick sinus syndrome; I51.3 Intracardiac thrombosis, not elsewhere classified; I65.21 Occlusion and stenosis of right carotid artery; J44.9 Chronic obstructive pulmonary disease, unspecified; J98.01 Acute bronchospasm; N18.2 Chronic kidney disease, stage 2 (mild); N40.1 Benign prostatic hyperplasia with lower urinary tract symptoms; R13.12 Dysphagia, oropharyngeal phase; R13.13 Dysphagia, pharyngeal phase; R33.8 Other retention of urine; S30.1XXA Contusion of abdominal wall, initial encounter; Z68.35 Body mass index [BMI] 35.0-35.9, adult; Y92.89 Other specified places as the place of occurrence of the external cause; Y93.89 Activity, other specified; Y99.8 Other external cause status; Z79.02 Long term (current) use of antithrombotics/antiplatelets; Z79.4 Long term (current) use of insulin; Z79.82 Long term (current) use of aspirin; Z79.899 Other long term (current) drug therapy; Z86.73 Personal history of transient ischemic attack (TIA), and cerebral infarction without residual deficits; Z86.74 Personal history of sudden cardiac arrest; Z87.891 Personal history of nicotine dependence; Z95.5 Presence of coronary angioplasty implant and graft; Z95.820 Peripheral vascular angioplasty status with implants and grafts; Z88.1 Allergy status to other antibiotic agents; Z88.8 Allergy status to other drugs, medicaments and biological substances; Z83.3 Family history of diabetes mellitus; Z82.49 Family history of ischemic heart disease and other diseases of the circulatory system
CPT/HCPCS: 36415; 70450; 71045; 71046; 71275; 74018; 74230; 76770; 80048; 80053; 80061; 80339; 81001; 82040; 82435; 82550; 82803; 82947; 82948; 83036; 83540; 83550; 83605; 83735; 83874; 83880; 83935; 84100; 84132; 84295; 84300; 84484; 84550; 85018; 85025; 85027; 85347; 85378; 85610; 85730; 86850; 86900; 86901; 86922; 92526; 92610; 92611; 93005; 93306; 93458; 93880; 93926; 94002; 94003; 94010; 94150; 94640; 94660; 94664; 94667; 94668; 94760; 97039; A4218; A4357; A7048; B4081; C1760; C1894; J0171; J0282; J0500; J0610; J0697; J1200; J1644; J1650; J1756; J1815; J1940; J2001; J2060; J2250; J2370; J2440; J2543; J2704; J2720; J3010; J3475; J3480; J3490; J7030; J7040; J7042; J7060; J7070; J7120; J7608; P9034; P9045; P9047; Q9967

== ENCOUNTER 2018-10-22 06:44 | Observation (INO) | payer MEDICARE ==
[2018-10-20 14:40] VITALS: BP 147/71
[2018-10-20 14:45] LABS: BASOPHILS % (AUTO) 1.3 % (0.0-5.0); EOSINOPHILS % (AUTO) 2.1 % (0.0-8.0); HEMATOCRIT 36.4 % (42-54); LYMPHOCYTES % (AUTO) 19.1 % (21.0-51.0); MEAN CORPUSCULAR HEMOGLOBIN 29.5 pg (27.0-33.0); MEAN CORPUSCULAR HGB CONC 32.2 g/dL (32.0-36.0); MEAN CORPUSCULAR VOLUME 91.6 fL (79-99); MONOCYTES % (AUTO) 7.9 % (3.0-13.0); NEUTROPHILS % (AUTO) 69.6 % (40.0-77.0); NUCLEATED RED BLOOD CELLS 0.1 % (0.0-0.19); PLATELET COUNT (AUTO) 113 K/uL (130-400); RED BLOOD CELL COUNT(AUTO) 3.98 MIL/uL (4.50-6.20); RED CELL DISTRIBUTION WIDTH 17.3 % (11.0-15.5); WHITE BLOOD COUNT (AUTO) 4.8 K/uL (4.8-10.8)
[2018-10-20 14:54] LABS: CREATININE 1.2 mg/dL (0.5-1.5); POTASSIUM 4.6 mmol/L (3.5-5.1)
[2018-10-20 15:01] LABS: INR 1.05 (0.85-1.15); PARTIAL THROMBOPLASTIN TIME 27.8 SEC (26.3-35.5)
--- NOTE | 2018-10-21 11:54 | NUR ---
LABS REPORTED AND FAXED ABNORMAL PLATELET LEVEL TO VALERIY VELASQUEZ. SHE WILL INFORM DR. HALL.
[2018-10-22] VITALS (11 sets, daily range): BP systolic 111–151; BP diastolic 56–84
[~2018-10-22] VITALS: Ht 172.7 cm; Wt 100.4 kg
[~2018-10-22 06:44] MED LIST changes: +AMLO2.5T4 PO; -AMLO5TAB7 PO; +ASCO500T9 PO; +CALC-190 PO; -CALCIUM CHLORIDE 100 MG/ML 10 ML SYG IVP ONE; +FURO20TA4 PO; -HEPARIN SODIUM 10000 UNIT/ML 1ML VIAL IJ ONE; -HEPARIN SODIUM 1000UNIT/ML 10ML VIAL IV ONE; -LISI1TAB11 PO; -METF-444 PO; +METO25TA3 PO; -METOPROLOL ER PO; -MULTIVITAMIN PO; +MVI PO; -PHENYLEPHRINE HCL 10 MG/ML 1ML VIAL IV ONE; +RIVA15TA PO; +SERT50TA12 PO; -SITA50TA PO; +SODIUM CHLORIDE 0.9% 1000ML 1,000 ML IV SCH; -[UNRECOGNIZED DRUG - OTHER] PO
[2018-10-22] MEDS ORDERED: LIDOCAINE HCL 1% MDV 50ML VIAL ONE (09:03)
[2018-10-22] MEDS ORDERED: BUPIVACAINE/PF 0.25% 30ML VIAL IJ ONE (09:03)
[2018-10-22] MEDS ORDERED: CEFAZOLIN SODIUM 1 GM VIAL ONE ×2 (09:03→09:04)
[2018-10-22] MEDS ORDERED: MEPERIDINE-PF 25 MG/ML SYG ONE ×2 (09:28→10:09)
[2018-10-22] MEDS ORDERED: MIDAZOLAM HCL 1 MG/ML 2ML VIAL ONE ×2 (09:28→10:09)
[2018-10-22] MEDS ORDERED: GLUCAGON 1MG KIT 1 MG ML IM PRN (11:00)
[2018-10-22] MEDS ORDERED: ACETAMINOPHEN 325 MG TAB PO PRN ×2 (11:00→12:30)
[2018-10-22] MEDS ORDERED: DEXTROSE 50%-WATER 50 ML DISP.SYRIN IV PRN (11:00)
[2018-10-22] MEDS ORDERED: ACETAMINOPHEN-CODEINE 300/30MG TAB PO PRN ×2 (11:00)
[2018-10-22] MEDS: INSULIN HUMULIN R 100 UNIT/ML 3ML SQ SCH ×3 (11:30→23:25)
[2018-10-22] MEDS ORDERED: ATORVASTATIN CALCIUM 10 MG TABLET PO SCH (21:00)
[2018-10-23 00:08] VITALS: BP 150/79
[2018-10-23 04:00] VITALS: BP 134/78
[2018-10-23] MEDS: INSULIN HUMULIN R 100 UNIT/ML 3ML SQ SCH ×2 (06:28→11:30)
[2018-10-23] MEDS ORDERED: INSULIN GLARGINE 100 UNITS/ML 10 ML VIAL SQ SCH (07:30)
[2018-10-23 07:37] VITALS: BP 136/86
[2018-10-23] MEDS ORDERED: ASPIRIN 81 MG EC TAB PO SCH (09:00)
[2018-10-23] MEDS ORDERED: SERTRALINE HCL 50 MG TABLET PO SCH (09:00)
[2018-10-23] MEDS ORDERED: MULTIVITAMIN TABLET PO SCH (09:00)
[2018-10-23] MEDS ORDERED: ALLOPURINOL 300 MG TABLET PO SCH (09:00)
[2018-10-23] MEDS ORDERED: METOPROLOL SUCCINATE PO SCH (09:00)
[2018-10-23] MEDS ORDERED: FISH OIL 1000 MG/CAP PO SCH (09:00)
[2018-10-23] MEDS ORDERED: CLOPIDOGREL BISULFATE 75 MG TAB PO SCH (09:00)
[2018-10-23] MEDS ORDERED: AMLODIPINE BESYLATE 2.5 MG TAB PO SCH (09:00)
[2018-10-23] MEDS ORDERED: CYANOCOBALAMIN (VITAMIN B-12) 1,000 MCG TABLET PO SCH (09:00)
[2018-10-23 11:20] VITALS: BP 150/84
[2018-10-23] MEDS ORDERED: CALCIUM 600 + VITAMIN D 400 TABLET PO SCH (12:00)
[2018-10-24] MEDS ORDERED: FUROSEMIDE 20 MG TABLET PO SCH (09:00)
== END 2018-10-23 14:00 | disposition home or self-care (01) ==
LOC: DAH 06:44 → DAHIP 06:45 → 2DH 11:10
PROVIDERS: ADMIT Internal Medicine; ATTEND Internal Medicine
DX: I44.1 Atrioventricular block, second degree (principal); E11.51 Type 2 diabetes mellitus with diabetic peripheral angiopathy without gangrene; I25.119 Atherosclerotic heart disease of native coronary artery with unspecified angina pectoris; I11.9 Hypertensive heart disease without heart failure; E78.00 Pure hypercholesterolemia, unspecified; Z95.1 Presence of aortocoronary bypass graft; Z95.5 Presence of coronary angioplasty implant and graft; Z79.4 Long term (current) use of insulin; Z79.899 Other long term (current) drug therapy; Z79.01 Long term (current) use of anticoagulants
CPT/HCPCS: 33208; 36415; 71045; 80048; 82948 ×6; 85025; 85610; 85730; 93005; 96372 ×2; A4606; C1785; C1898 ×2; G0378 ×31; J0690 ×2; J1815 ×2; J2175 ×2; J2250 ×2; J3490 ×2; J7030; 99156; 99157